=== PATIENT | female | born 1985 | race Caucasian/White ===

== ENCOUNTER 2020-12-21 11:57 | Emergency (ER) | payer OTHER ==
[2020-12-21 13:12] LABS: BASOPHIL 0.4 % (0-2); EOSINOPHIL 0.9 % (0-5); HCT 38.3 % (37.0-47.0); HGB 13.1 g/dl (12.5-16.0); LYMPHOCYTE 9.3 % (15-48); MCHC 34.2 g/dL (32.0-36.0); MCV 87.8 fL (78.0-100.0); MONOCYTE 5.8 % (0-12); MPV 9.3 fL (6.0-9.5); NRBC 0; PLT 330 K/uL (150-400); RBC 4.36 M/uL (4.20-5.40); RDW 12.4 % (11.5-14.0); WBC 13.6 K/uL (4.0-10.5)
[2020-12-21 13:38] LABS: ALBUMIN 3.8 g/dL (3.4-5.0); BILIRUBIN - TOTAL 0.5 mg/dL (0.2-1.0); BUN/CREAT RATIO (CALC) 13.9 RATIO; CREATININE 0.72 mg/dL (0.51-0.95); GLOBULIN (CALCULATION) 3.6 g/dL; POTASSIUM 3.4 mmol/L (3.5-5.1); TOTAL PROTEIN 7.4 g/dL (6.4-8.2)
[2020-12-21 13:50] LABS: BILIRUBIN NEGATIVE (NEGATIVE); BLOOD NEGATIVE Ery/uL (NEGATIVE); CLARITY CLEAR (CLEAR); COLOR YELLOW (YELLOW); GLUCOSE (U) NORMAL (NORMAL); LEUKOCYTES NEGATIVE Leu/uL (NEGATIVE); NITRITE NEGATIVE (NEGATIVE); PROTEIN NEGATIVE (NEGATIVE); SPECIFIC GRAVITY 1.015 (1.001-1.030); UROBILINOGEN 0.2 mg/dL (0.2-1.0); pH 8.5 (5.0-9.0)
[2020-12-21] MEDS ORDERED: KETOROLAC TROME10 MG PO (14:25)
[2020-12-21] MEDS ORDERED: FLOMAX0.4 MG PO (14:25)
[2020-12-21] MEDS ORDERED: NORCO 5-325 TA1 EACH PO (14:25)
[2020-12-21] MEDS ORDERED: ONDANSETRON ODT4 MG PO (14:25)
== END 2020-12-21 14:48 | disposition home or self-care (01) ==
LOC: FER 11:57
PROVIDERS: Emergency Medicine
DX: N13.2 Hydronephrosis with renal and ureteral calculous obstruction (principal); Z98.890 Other specified postprocedural states
CPT/HCPCS: 36415; 80053; 81003; 83690; 85025; J1885; J2405; J7030